=== PATIENT | male | born 1985 | race African-American/Black ===

== ENCOUNTER 2018-08-12 07:27 | Emergency (ER) | payer SELFPAY ==
[2018-08-12 07:50] VITALS: BP 133/82; PULSE 66; TEMP 98.2; BMI 27.3
[2018-08-12] MEDS ORDERED: METHOCARBAMOL 500 MG TABLET PO ONE (08:16)
[2018-08-12] MEDS ORDERED: traMADol HCL 50 MG TABLET PO ONE (08:16)
[2018-08-12] MEDS ORDERED: traMADol HCL 50 MG TABLET ONE (08:23)
[2018-08-12] MEDS ORDERED: METHOCARBAMOL 500 MG TABLET ONE (08:24)
--- NOTE | 2018-08-12 08:24 | PDOC ---
History of Present Illness - General Chief Complaint: Back Pain Stated Complaint: R SIDED NUMBNESS Time Seen by Provider: 08/12/18 08:06 History Source: Patient Exam Limitations: Clinical Condition - History of Present Illness Initial Comments: 08/12/18 08:21 Patient with no PMhx present with complains of sudden onset of worsening pains with tingling sensation to right side of his body from right shoulder down to right arm and posterior spine. 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 Report numbness sensation to right side of body. Denies previous symptoms in the past. Denies dizziness, N/V. Timing/Duration: 24 hours Past History - Past Medical History Allergies/Adverse Reactions: Allergies Allergy/AdvReac Type Severity Reaction Status Date / Time shellfish derived Allergy Verified 08/12/18 07:41 Home Medications: Ambulatory Orders Methocarbamol [Robaxin -] 500 mg PO TID #21 tablet 08/12/18 Naproxen 500 mg PO BID PRN #20 tablet 08/12/18 CVA: No COPD: No Other medical history: CHRONIC BACK PAIN - Immunization History Immunization Up to Date: Yes - Suicide/Smoking/Psychosocial Hx Smoking History: Never smoked Hx Alcohol Use: No Drug/Substance Use Hx: No Review of Systems - Review of Systems Able to Perform ROS?: Yes Is the patient limited Estonian proficient: No Constitutional: No: Weakness HEENTM: No: Symptoms Reported, See HPI, Eye Pain, Blurred Vision, Tearing, Recent change in vision, Double Vision, Cataracts, Ear Pain, Ocular Prothesis, Ear Discharge, Nose Pain, Nose Congestion, Tinnitus, Nose Bleeding, Hearing Loss , Throat Pain, Throat Swelling, Mouth Pain, Dental Problems, Difficulty Swallowing, Mouth Swelling, Other Respiratory: No: Symptoms reported, See HPI, Cough, Orthopnea, Shortness of Breath, SOB with Exertion, SOB at Rest, Stridor, Wheezing, Productive cough, Hemoptysis, Other Cardiac (ROS): No: Symptoms Reported, See HPI, Chest Pain, Edema, Irregular Heart Rate, Lightheadedness, Palpitations, Syncope, Chest Tightness, Other ABD/GI: No: Nausea, Vomiting Musculoskeletal: Yes: See HPI, Back Pain, Muscle Pain (right upper arm), Neck Pain (posterior neck) Neurological: Yes: See HPI, Numbness (right upper arm, shoulder, b/l LE, whole back), Tingling. No: Pre-Existing Deficit, Weakness, Unsteady Gait, Dizziness All Other Systems: Reviewed and Negative *Physical Exam - Vital Signs Last Vital Signs Temp Pulse Resp BP Pulse Ox 98.2 F 66 17 133/82 98 08/12/18 07:42 08/12/18 07:42 08/12/18 07:42 08/12/18 07:42 08/12/18 07:42 - Physical Exam Comments: 08/12/18 09:10 GENERAL: Well developed, well nourished. Awake and alert in mild acute distress. CARDIOVASCULAR: Regular rate and rhythm. No murmurs, rubs, or gallops. PULMONARY: No evidence of respiratory distress. Lungs clear to auscultation bilaterally. No wheezing, rales or rhonchi. ABDOMINAL: Soft. Non-tender. Non-distended. No rebound or guarding. No organomegaly. Normoactive bowel sounds MUSCULOSKELETAL : Subjective pressure to right upper shoulder, bilateral posterior neck, bilateral lower back. No bony deformities SKIN: Warm and dry. Normal capillary refill. NEUROLOGICAL: Alert, awake, appropriate. No motor deficits in the lower extremities. Gait is normal without ataxia. PSYCHIATRIC: Cooperative. Good eye contact. Appropriate mood and affect. General Appearance: Yes: Nourished, Appropriately Dressed, Mild Distress ED Treatment Course - RADIOLOGY Radiology Studies Ordered: Category Date Time Status SHOULDER-RIGHT [RAD] Stat Radiology 08/12/18 08:16 Ordered SPINE-CERVICAL [RAD] Stat Radiology 08/12/18 08:16 Ordered Medical Decision Making - Medical Decision Making 08/12/18 08:24 Patient with no PMhx present with complains of sudden onset of worsening pains with tingling sensation to right side of his body from right shoulder down to right arm and posterior spine. 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 Report numbness sensation to right side of body. Denies previous symptoms in the past. Denies dizziness, N/V. 08/12/18 10:[address] shows arthritis changes with pinched nerve of C5 on left side. 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 no acute findings on imaging. imaging findings discussed with patient and advised on need of orthopedics follow-up. Patient stable for discharge on naproxen and robaxin with ortho follow-up *DC/Admit/Observation/Transfer Diagnosis at time of Disposition: Right elbow tendinitis, Arthralgia, cervical spine Lumbago with sciatica Qualifiers: Chronicity: acute Back pain laterality: bilateral Sciatica laterality: bilateral sciatica Qualified Code(s): M54.42 - Lumbago with sciatica, left side - Discharge Dispostion Disposition: HOME Condition at time of disposition: Stable Decision to Admit order: No - Prescriptions Prescriptions: Methocarbamol [Robaxin -] 500 mg PO TID #21 tablet Naproxen 500 mg PO BID PRN #20 tablet PRN Reason: pain - Referrals Referrals: Robby Najera DO [Staff Physician] - - Patient Instructions Printed Discharge Instructions: Cervical Myelopathy, DI for Cervical Radiculopathy Additional Instructions: Neck CATS scan shows pinched nerve in cervical spine. Moderate arthritis changes in lower back .Take medications as prescribed. Follow-up with referred orthopedics - Post Discharge Activity Forms/Work/School Notes: Back to Work
--- NOTE | 2018-08-12 09:09 | PDOC ---
*Physical Exam - Vital Signs Last Vital Signs Temp Pulse Resp BP Pulse Ox 98.2 F 66 17 133/82 98 08/12/18 07:42 08/12/18 07:42 08/12/18 07:42 08/12/18 07:42 08/12/18 07:42 - Physical Exam Comments: 08/12/18 09:09 The patient was examined by [LAWSON Zazueta] under my direct supervision. I personally evaluated the patient. I concur with the above findings and the plan of care. ED Treatment Course - Medications Given in the ED: ED Medications Discontinued Medications Generic Name Dose Route Start Last Admin Trade Name Freq PRN Reason Stop Dose Admin Methocarbamol 500 mg 08/12/18 08:16 08/12/18 08:27 Robaxin - PO 08/12/18 08:17 500 mg ONCE ONE Administration Tramadol HCl 50 mg 08/12/18 08:16 08/12/18 08:27 Ultram - PO 08/12/18 08:17 50 mg ONCE ONE Administration
[2018-08-12] MEDS ORDERED: KETOROLAC TROMETHAMINE 60 MG/2 ML VIAL IM ONE (09:57)
[2018-08-12] MEDS ORDERED: KETOROLAC TROMETHAMINE 60 MG/2 ML VIAL ONE (10:41)
== END 2018-08-12 11:25 | disposition home or self-care (01) ==
LOC: JER 07:27
PROC: 3E0233Z Introduction of Anti-inflammatory into Muscle, Percutaneous Approach (ICD-10-PCS; principal; 2018-08-12)
DX: M77.9 Enthesopathy, unspecified (principal); M54.42 Lumbago with sciatica, left side; M54.2 Cervicalgia
CPT/HCPCS: 72100-TC-FY; 72125-TC; 73070-TC-RT-FY; 99281-25

== ENCOUNTER 2020-01-13 11:40 | Inpatient (IN) | payer OTHER ==
[2020-01-13 13:51] VITALS: BMI 33.6
[2020-01-13] MEDS ORDERED: LOPERAMIDE HCL 2 MG CAPSULE PO PRN (17:07)
[2020-01-13] MEDS ORDERED: MAGNESIUM CITRATE 300 ML BOTTLE PO PRN (17:07)
[2020-01-13] MEDS ORDERED: TUBERCULIN PPD 5 TU/0.1ML VIAL ID ONE (17:38)
[2020-01-13] MEDS: MELATONIN 5 MG TABLETS PO PRN (21:33)
[2020-01-13] MEDS: THIAMINE HCL 100 MG TABLET (FP) PO SCH (21:33)
[2020-01-13] MEDS: hydrOXYzine PAMOATE 25 MG CAPSULE (FP) PO PRN (21:33)
[2020-01-13] MEDS: ACETAMINOPHEN 325 MG TABLET (FP) PO PRN (21:34)
[2020-01-14] MEDS: PRENATAL VITAMINS W/ FOLIC ACID TABLET (FP) PO SCH (10:13)
[2020-01-14] MEDS: METHOCARBAMOL 500 MG TABLET PO PRN (10:13)
[2020-01-14] MEDS: hydrOXYzine PAMOATE 25 MG CAPSULE (FP) PO PRN (10:14)
[2020-01-14 10:30] LABS: POTASSIUM 3.9 mmol/L (3.5-5.1)
[2020-01-14 10:32] LABS: HEMATOCRIT 43.2 % (35.4-49); HEMOGLOBIN 14.2 GM/dL (11.7-16.9); MCH 31.6 pg (25.7-33.7); MCHC 32.8 g/dl (32.0-35.9); MEAN CELL VOLUME 96.2 fl (80-96); MEAN PLT VOLUME 8.8 fl (7.5-11.1); PLATELET COUNT 219 K/MM3 (134-434); RBC 4.49 M/mm3 (4.00-5.60); RDW 13.7 % (11.9-15.9); WHITE BLOOD COUNT 7.3 K/mm3 (4.0-10.0)
[2020-01-14 10:35] LABS: CALCIUM 8.7 mg/dL (8.5-10.1)
[2020-01-14 10:36] LABS: ALBUMIN 3.4 g/dl (3.4-5.0); BLOOD UREA NITROGEN 14.2 mg/dL (7-18)
[2020-01-14 10:39] LABS: BILIRUBIN,TOTAL 0.4 mg/dL (0.2-1); CREATININE 0.8 mg/dL (0.55-1.3); TOT PROT 6.4 g/dl (6.4-8.2)
[2020-01-14 11:23] LABS: SICKLE CELL SCREEN NEGATIVE (NEGATIVE)
[2020-01-14 11:25] LABS: HIV INTERPRETATION NEGATIVE (NEGATIVE)
[2020-01-14] MEDS ORDERED: FLU VACCINE (FLULAVAL) PF 60 MCG/0.5 ML SYRINGE 2020-2021 IM ONE (12:00)
[2020-01-14] MEDS ORDERED: PNEUMOC 13-VAL CONJ-DIP CRM/PF 0.5 ML DISP.SYRIN IM ONE (12:00)
[2020-01-14] MEDS ORDERED: PNEUMOCOCCAL 23 VACCINE 0.5 ML VIAL IM ONE (12:00)
[2020-01-14 14:26] LABS: PH,URINE 5.5 (5.0-8.0); URINE APPEARANCE CLEAR; URINE BILIRUBIN NEGATIVE (NEGATIVE); URINE COLOR YELLOW; URINE GLUCOSE (UA) NEGATIVE (NEGATIVE); URINE KETONE NEGATIVE (NEGATIVE); URINE LEUK ESTERASE NEGATIVE (NEGATIVE); URINE NITRITE NEGATIVE (NEGATIVE); URINE PROTEIN NEGATIVE (NEGATIVE); URINE UROBILINOGEN 0.2 mg/dL (0.2-1.0)
[2020-01-14] MEDS: THIAMINE HCL 100 MG TABLET (FP) PO SCH (22:10)
[2020-01-15] MEDS: PRENATAL VITAMINS W/ FOLIC ACID TABLET (FP) PO SCH (10:02)
[2020-01-15] MEDS: METHOCARBAMOL 500 MG TABLET PO PRN ×2 (10:03→17:11)
[2020-01-15] MEDS: hydrOXYzine PAMOATE 25 MG CAPSULE (FP) PO PRN (10:03)
[2020-01-15] MEDS: IBUPROFEN 400 MG TABLET (FP) PO PRN ×2 (10:04→17:11)
[2020-01-16] MEDS: THIAMINE HCL 100 MG TABLET (FP) PO SCH ×2 (00:09→21:43)
[2020-01-16] MEDS: PRENATAL VITAMINS W/ FOLIC ACID TABLET (FP) PO SCH (10:13)
[2020-01-16] MEDS: METHOCARBAMOL 500 MG TABLET PO PRN ×2 (10:13→21:44)
[2020-01-16] MEDS: ACETAMINOPHEN 325 MG TABLET (FP) PO PRN (10:14)
[2020-01-16] MEDS: MELATONIN 5 MG TABLETS PO PRN (21:43)
[2020-01-16] MEDS: IBUPROFEN 400 MG TABLET (FP) PO PRN (21:45)
[2020-01-16] MEDS: hydrOXYzine PAMOATE 25 MG CAPSULE (FP) PO PRN (21:46)
[2020-01-17] MEDS: hydrOXYzine PAMOATE 25 MG CAPSULE (FP) PO PRN ×2 (10:32→21:34)
[2020-01-17] MEDS: METHOCARBAMOL 500 MG TABLET PO PRN (10:32)
[2020-01-17] MEDS: PRENATAL VITAMINS W/ FOLIC ACID TABLET (FP) PO SCH (10:32)
[2020-01-17] MEDS: IBUPROFEN 400 MG TABLET (FP) PO PRN (10:32)
[2020-01-17] MEDS: MAGNESIUM HYDROX 2400MG/30ML ORAL SUSPENSION 30 ML CUP PO PRN ×2 (13:40→21:33)
[2020-01-17] MEDS: P-EPHED 60MG/TRIPROLIDI 2.5MG TABLET PO PRN (13:40)
[2020-01-17] MEDS: LIDOCAINE 5% TOPICAL PATCH TP SCH (16:05)
[2020-01-17] MEDS: DOCUSATE SODIUM 100 MG CAPSULE (FP) PO SCH (21:34)
[2020-01-17] MEDS: THIAMINE HCL 100 MG TABLET (FP) PO SCH (21:34)
[2020-01-17] MEDS: METHOCARBAMOL 750 MG TAB PO PRN (21:34)
[2020-01-17] MEDS: LIDOCAINE PATCH REMOVAL MC SCH (21:34)
[2020-01-17] MEDS: MELATONIN 5 MG TABLETS PO PRN (21:34)
[2020-01-18] MEDS: DOCUSATE SODIUM 100 MG CAPSULE (FP) PO SCH ×3 (06:52→21:28)
[2020-01-18] MEDS: P-EPHED 60MG/TRIPROLIDI 2.5MG TABLET PO PRN (06:55)
[2020-01-18] MEDS: MAG HYDROX/AL HYDROX/SIMETH 30 ML UNIT-DOSE CUP PO PRN ×2 (06:56→17:46)
[2020-01-18] MEDS: METHOCARBAMOL 750 MG TAB PO PRN ×2 (10:37→21:28)
[2020-01-18] MEDS: PRENATAL VITAMINS W/ FOLIC ACID TABLET (FP) PO SCH (10:37)
[2020-01-18] MEDS: hydrOXYzine PAMOATE 25 MG CAPSULE (FP) PO PRN ×2 (10:37→21:28)
[2020-01-18] MEDS: LIDOCAINE 5% TOPICAL PATCH TP SCH (10:38)
[2020-01-18] MEDS: IBUPROFEN 400 MG TABLET (FP) PO PRN (10:39)
[2020-01-18] MEDS: THIAMINE HCL 100 MG TABLET (FP) PO SCH (21:28)
[2020-01-18] MEDS: SUVOREXANT 10 MG TABLET PO PRN (21:28)
[2020-01-18] MEDS: MELATONIN 5 MG TABLETS PO PRN (21:28)
[2020-01-18] MEDS: LIDOCAINE PATCH REMOVAL MC SCH (21:29)
[2020-01-19] MEDS: DOCUSATE SODIUM 100 MG CAPSULE (FP) PO SCH ×3 (07:01→21:24)
[2020-01-19] MEDS: PRENATAL VITAMINS W/ FOLIC ACID TABLET (FP) PO SCH (09:56)
[2020-01-19] MEDS: LIDOCAINE 5% TOPICAL PATCH TP SCH (09:56)
[2020-01-19] MEDS: METHOCARBAMOL 750 MG TAB PO PRN ×2 (09:57→21:24)
[2020-01-19] MEDS: hydrOXYzine PAMOATE 25 MG CAPSULE (FP) PO PRN ×2 (09:59→21:24)
[2020-01-19] MEDS: ACETAMINOPHEN 325 MG TABLET (FP) PO PRN (09:59)
[2020-01-19] MEDS: MAG HYDROX/AL HYDROX/SIMETH 30 ML UNIT-DOSE CUP PO PRN ×2 (10:02→17:08)
[2020-01-19] MEDS: P-EPHED 60MG/TRIPROLIDI 2.5MG TABLET PO PRN (10:02)
[2020-01-19] MEDS: SELENIUM SULFIDE 2.5% LOTION 4 OZ. TP SCH (14:16)
[2020-01-19] MEDS: COLLOIDAL OATMEAL 1 BAR EACH TP PRN (14:16)
[2020-01-19] MEDS: guaiFENesin 200 MG/10 ML 10 ML UNIT-DOSE CUPS PO PRN (19:20)
[2020-01-19] MEDS: MELATONIN 5 MG TABLETS PO PRN (21:23)
[2020-01-19] MEDS: SUVOREXANT 10 MG TABLET PO PRN (21:23)
[2020-01-19] MEDS: LIDOCAINE PATCH REMOVAL MC SCH (21:24)
[2020-01-19] MEDS: THIAMINE HCL 100 MG TABLET (FP) PO SCH (21:24)
[2020-01-20] MEDS: DOCUSATE SODIUM 100 MG CAPSULE (FP) PO SCH ×3 (06:36→22:05)
[2020-01-20] MEDS: MAG HYDROX/AL HYDROX/SIMETH 30 ML UNIT-DOSE CUP PO PRN ×3 (06:46→22:06)
[2020-01-20] MEDS: PRENATAL VITAMINS W/ FOLIC ACID TABLET (FP) PO SCH (10:05)
[2020-01-20] MEDS: SELENIUM SULFIDE 2.5% LOTION 4 OZ. TP SCH (10:05)
[2020-01-20] MEDS: LIDOCAINE 5% TOPICAL PATCH TP SCH (10:06)
[2020-01-20] MEDS: METHOCARBAMOL 750 MG TAB PO PRN ×2 (10:06→22:06)
[2020-01-20] MEDS: hydrOXYzine PAMOATE 25 MG CAPSULE (FP) PO PRN (10:07)
[2020-01-20] MEDS: P-EPHED 60MG/TRIPROLIDI 2.5MG TABLET PO PRN ×2 (10:08→22:06)
[2020-01-20] MEDS: SUVOREXANT 10 MG TABLET PO PRN (22:05)
[2020-01-20] MEDS: THIAMINE HCL 100 MG TABLET (FP) PO SCH (22:06)
[2020-01-20] MEDS: LIDOCAINE PATCH REMOVAL MC SCH (22:07)
[2020-01-20] MEDS: ACETAMINOPHEN 325 MG TABLET (FP) PO PRN (22:07)
[2020-01-21] MEDS: DOCUSATE SODIUM 100 MG CAPSULE (FP) PO SCH ×3 (08:13→21:45)
[2020-01-21] MEDS: SELENIUM SULFIDE 2.5% LOTION 4 OZ. TP SCH (10:40)
[2020-01-21] MEDS: hydrOXYzine PAMOATE 25 MG CAPSULE (FP) PO PRN ×2 (10:40→21:45)
[2020-01-21] MEDS: METHOCARBAMOL 750 MG TAB PO PRN ×2 (10:40→21:45)
[2020-01-21] MEDS: PRENATAL VITAMINS W/ FOLIC ACID TABLET (FP) PO SCH (10:40)
[2020-01-21] MEDS: LIDOCAINE 5% TOPICAL PATCH TP SCH (10:41)
[2020-01-21] MEDS: MAG HYDROX/AL HYDROX/SIMETH 30 ML UNIT-DOSE CUP PO PRN ×2 (10:42→19:11)
[2020-01-21] MEDS: P-EPHED 60MG/TRIPROLIDI 2.5MG TABLET PO PRN (10:42)
[2020-01-21] MEDS: ACETAMINOPHEN 325 MG TABLET (FP) PO PRN (10:43)
[2020-01-21] MEDS: IBUPROFEN 400 MG TABLET (FP) PO PRN (15:07)
[2020-01-21] MEDS: MELATONIN 5 MG TABLETS PO PRN (21:45)
[2020-01-21] MEDS: LIDOCAINE PATCH REMOVAL MC SCH (21:45)
[2020-01-21] MEDS: THIAMINE HCL 100 MG TABLET (FP) PO SCH (21:45)
[2020-01-21] MEDS: SUVOREXANT 10 MG TABLET PO PRN (21:49)
[2020-01-21] MEDS: PSYLLIUM 5.85 GM PACKET PO SCH (22:20)
[2020-01-22] MEDS: DOCUSATE SODIUM 100 MG CAPSULE (FP) PO SCH ×3 (06:35→21:09)
[2020-01-22] MEDS: PSYLLIUM 5.85 GM PACKET PO SCH ×3 (06:35→21:11)
[2020-01-22] MEDS: MAG HYDROX/AL HYDROX/SIMETH 30 ML UNIT-DOSE CUP PO PRN ×3 (06:37→23:58)
[2020-01-22] MEDS: LIDOCAINE 5% TOPICAL PATCH TP SCH (10:08)
[2020-01-22] MEDS: PRENATAL VITAMINS W/ FOLIC ACID TABLET (FP) PO SCH (10:08)
[2020-01-22] MEDS: ACETAMINOPHEN 325 MG TABLET (FP) PO PRN ×2 (10:09→14:46)
[2020-01-22] MEDS: hydrOXYzine PAMOATE 25 MG CAPSULE (FP) PO PRN ×3 (10:09→21:09)
[2020-01-22] MEDS: METHOCARBAMOL 750 MG TAB PO PRN ×2 (10:09→21:09)
[2020-01-22] MEDS: P-EPHED 60MG/TRIPROLIDI 2.5MG TABLET PO PRN (10:11)
[2020-01-22] MEDS: SELENIUM SULFIDE 2.5% LOTION 4 OZ. TP SCH (10:12)
[2020-01-22] MEDS: MELATONIN 5 MG TABLETS PO PRN (21:09)
[2020-01-22] MEDS: SUVOREXANT 10 MG TABLET PO PRN (21:09)
[2020-01-22] MEDS: THIAMINE HCL 100 MG TABLET (FP) PO SCH (21:09)
[2020-01-22] MEDS: LIDOCAINE PATCH REMOVAL MC SCH (21:11)
[2020-01-23] MEDS: DOCUSATE SODIUM 100 MG CAPSULE (FP) PO SCH ×3 (06:58→21:31)
[2020-01-23] MEDS: PSYLLIUM 5.85 GM PACKET PO SCH ×3 (06:58→21:29)
[2020-01-23] MEDS: MAG HYDROX/AL HYDROX/SIMETH 30 ML UNIT-DOSE CUP PO PRN ×3 (07:00→21:32)
[2020-01-23] MEDS: PRENATAL VITAMINS W/ FOLIC ACID TABLET (FP) PO SCH (09:58)
[2020-01-23] MEDS: LIDOCAINE 5% TOPICAL PATCH TP SCH (09:58)
[2020-01-23] MEDS: hydrOXYzine PAMOATE 25 MG CAPSULE (FP) PO PRN ×2 (09:58→21:31)
[2020-01-23] MEDS: guaiFENesin 200 MG/10 ML 10 ML UNIT-DOSE CUPS PO PRN (09:59)
[2020-01-23] MEDS: METHOCARBAMOL 750 MG TAB PO PRN ×2 (09:59→21:32)
[2020-01-23] MEDS: ACETAMINOPHEN 325 MG TABLET (FP) PO PRN (09:59)
[2020-01-23] MEDS: P-EPHED 60MG/TRIPROLIDI 2.5MG TABLET PO PRN ×2 (10:00→21:31)
[2020-01-23] MEDS: SELENIUM SULFIDE 2.5% LOTION 4 OZ. TP SCH (10:03)
[2020-01-23] MEDS: THIAMINE HCL 100 MG TABLET (FP) PO SCH (21:31)
[2020-01-23] MEDS: MELATONIN 5 MG TABLETS PO PRN (21:31)
[2020-01-23] MEDS: SUVOREXANT 10 MG TABLET PO PRN (21:31)
[2020-01-23] MEDS: LIDOCAINE PATCH REMOVAL MC SCH (21:31)
[2020-01-24] MEDS: PSYLLIUM 5.85 GM PACKET PO SCH ×3 (06:41→23:15)
[2020-01-24] MEDS: MAG HYDROX/AL HYDROX/SIMETH 30 ML UNIT-DOSE CUP PO PRN (06:44)
[2020-01-24] MEDS: DOCUSATE SODIUM 100 MG CAPSULE (FP) PO SCH ×3 (06:59→21:33)
[2020-01-24] MEDS: PRENATAL VITAMINS W/ FOLIC ACID TABLET (FP) PO SCH (10:15)
[2020-01-24] MEDS: LIDOCAINE 5% TOPICAL PATCH TP SCH (10:15)
[2020-01-24] MEDS: SELENIUM SULFIDE 2.5% LOTION 4 OZ. TP SCH (10:15)
[2020-01-24] MEDS: hydrOXYzine PAMOATE 25 MG CAPSULE (FP) PO PRN ×3 (10:16→21:33)
[2020-01-24] MEDS: METHOCARBAMOL 750 MG TAB PO PRN ×2 (10:18→21:33)
[2020-01-24] MEDS: guaiFENesin 200 MG/10 ML 10 ML UNIT-DOSE CUPS PO PRN (10:18)
[2020-01-24] MEDS: ACETAMINOPHEN 325 MG TABLET (FP) PO PRN (10:18)
[2020-01-24] MEDS: P-EPHED 60MG/TRIPROLIDI 2.5MG TABLET PO PRN (10:20)
[2020-01-24] MEDS: PANTOPRAZOLE 40 MG TABLET PO SCH (14:44)
[2020-01-24] MEDS: THIAMINE HCL 100 MG TABLET (FP) PO SCH (21:33)
[2020-01-24] MEDS: MELATONIN 5 MG TABLETS PO PRN (21:33)
[2020-01-24] MEDS: LIDOCAINE PATCH REMOVAL MC SCH (23:15)
[2020-01-25] MEDS: MAG HYDROX/AL HYDROX/SIMETH 30 ML UNIT-DOSE CUP PO PRN ×2 (06:42→18:25)
[2020-01-25] MEDS: DOCUSATE SODIUM 100 MG CAPSULE (FP) PO SCH ×3 (06:42→21:34)
[2020-01-25] MEDS: PSYLLIUM 5.85 GM PACKET PO SCH ×3 (06:42→21:34)
[2020-01-25 06:56] VITALS: TEMP 97.8
[2020-01-25] MEDS: PANTOPRAZOLE 40 MG TABLET PO SCH (10:18)
[2020-01-25] MEDS: SELENIUM SULFIDE 2.5% LOTION 4 OZ. TP SCH (10:18)
[2020-01-25] MEDS: PRENATAL VITAMINS W/ FOLIC ACID TABLET (FP) PO SCH (10:18)
[2020-01-25] MEDS: hydrOXYzine PAMOATE 25 MG CAPSULE (FP) PO PRN ×2 (10:20→21:36)
[2020-01-25] MEDS: ACETAMINOPHEN 325 MG TABLET (FP) PO PRN ×2 (10:20→21:36)
[2020-01-25] MEDS: METHOCARBAMOL 750 MG TAB PO PRN (10:21)
[2020-01-25] MEDS: LIDOCAINE 5% TOPICAL PATCH TP SCH (10:22)
[2020-01-25] MEDS: COLLOIDAL OATMEAL 1 BAR EACH TP PRN (15:07)
[2020-01-25] MEDS: SUVOREXANT 10 MG TABLET PO PRN (21:34)
[2020-01-25] MEDS: LIDOCAINE PATCH REMOVAL MC SCH (21:35)
[2020-01-25] MEDS: THIAMINE HCL 100 MG TABLET (FP) PO SCH (21:39)
[2020-01-26] MEDS: DOCUSATE SODIUM 100 MG CAPSULE (FP) PO SCH ×3 (07:01→21:40)
[2020-01-26] MEDS: MAG HYDROX/AL HYDROX/SIMETH 30 ML UNIT-DOSE CUP PO PRN (07:01)
[2020-01-26] MEDS: PSYLLIUM 5.85 GM PACKET PO SCH ×3 (07:01→21:44)
[2020-01-26 07:09] VITALS: BP 123/80; PULSE 66
[2020-01-26] MEDS: METHOCARBAMOL 750 MG TAB PO PRN (10:32)
[2020-01-26] MEDS: PRENATAL VITAMINS W/ FOLIC ACID TABLET (FP) PO SCH (10:32)
[2020-01-26] MEDS: PANTOPRAZOLE 40 MG TABLET PO SCH (10:32)
[2020-01-26] MEDS: LIDOCAINE 5% TOPICAL PATCH TP SCH (10:33)
[2020-01-26] MEDS: SELENIUM SULFIDE 2.5% LOTION 4 OZ. TP SCH (10:33)
[2020-01-26] MEDS: ACETAMINOPHEN 325 MG TABLET (FP) PO PRN (10:35)
[2020-01-26] MEDS: hydrOXYzine PAMOATE 25 MG CAPSULE (FP) PO PRN ×2 (10:35→21:40)
[2020-01-26] MEDS: SUVOREXANT 10 MG TABLET PO PRN (21:40)
[2020-01-26] MEDS: MELATONIN 5 MG TABLETS PO PRN (21:40)
[2020-01-26] MEDS: THIAMINE HCL 100 MG TABLET (FP) PO SCH (21:40)
[2020-01-26] MEDS: P-EPHED 60MG/TRIPROLIDI 2.5MG TABLET PO PRN (21:42)
[2020-01-26] MEDS: LIDOCAINE PATCH REMOVAL MC SCH (21:43)
[2020-01-27] MEDS: DOCUSATE SODIUM 100 MG CAPSULE (FP) PO SCH (07:46)
[2020-01-27] MEDS: PSYLLIUM 5.85 GM PACKET PO SCH (07:46)
[2020-01-27] MEDS: PANTOPRAZOLE 40 MG TABLET PO SCH (09:17)
[2020-01-27] MEDS: ACETAMINOPHEN 325 MG TABLET (FP) PO PRN (09:17)
[2020-01-27] MEDS: METHOCARBAMOL 750 MG TAB PO PRN (09:17)
[2020-01-27] MEDS: PRENATAL VITAMINS W/ FOLIC ACID TABLET (FP) PO SCH (09:17)
[2020-01-27] MEDS: hydrOXYzine PAMOATE 25 MG CAPSULE (FP) PO PRN (09:17)
[2020-01-27] MEDS: LIDOCAINE 5% TOPICAL PATCH TP SCH (09:20)
== END 2020-01-27 10:50 | disposition home or self-care (01) | DRG 772 ==
LOC: YASAS 11:40 → Y5N 17:11
PROVIDERS: ADMIT Allergy & Immunology; ATTEND Allergy & Immunology
PROC: HZ42ZZZ Group Counseling for Substance Abuse Treatment, Cognitive-Behavioral (ICD-10-PCS; principal; 2020-01-13)
DX: F10.20 Alcohol dependence, uncomplicated (principal); F16.20 Hallucinogen dependence, uncomplicated; F12.20 Cannabis dependence, uncomplicated; F32.9 Major depressive disorder, single episode, unspecified; F90.9 Attention-deficit hyperactivity disorder, unspecified type; F17.210 Nicotine dependence, cigarettes, uncomplicated; G47.33 Obstructive sleep apnea (adult) (pediatric); I10 Essential (primary) hypertension; K21.9 Gastro-esophageal reflux disease without esophagitis; K59.00 Constipation, unspecified; M19.072 Primary osteoarthritis, left ankle and foot; M54.5 Low back pain; G89.29 Other chronic pain; R73.03 Prediabetes; E66.9 Obesity, unspecified; Z68.33 Body mass index [BMI] 33.0-33.9, adult; Z91.018 Allergy to other foods; Z56.0 Unemployment, unspecified; Z59.0 Homelessness
CPT/HCPCS: 36415; 80053; 81003; 82962; 85027; 85660; 86780; 87389; 90732; C9803; G0008; G0009; Q2036; U0003

== ENCOUNTER 2020-05-23 21:52 | Inpatient (IN) | payer OTHER ==
[2020-05-23 22:26] VITALS: BMI 33.2
[2020-05-23] MEDS ORDERED: P-EPHED 60MG/TRIPROLIDI 2.5MG TABLET PO PRN (23:01)
[2020-05-23] MEDS ORDERED: BISMUTH SUBSALICYLATE 524 MG/30 ML UD PO PRN (23:01)
[2020-05-23] MEDS ORDERED: ACETAMINOPHEN 325 MG TABLET (FP) PO PRN ×2 (23:01)
[2020-05-23] MEDS ORDERED: ONDANSETRON *ODT* 4 MG TABLET SL PRN (23:01)
[2020-05-23] MEDS ORDERED: DICYCLOMINE HCL 10 MG CAPSULE PO PRN (23:01)
[2020-05-23] MEDS ORDERED: MENTHOL/PHENOL 1 EACH UD MM PRN (23:01)
[2020-05-23] MEDS ORDERED: guaiFENesin 200 MG/10 ML 10 ML UNIT-DOSE CUPS PO PRN (23:01)
[2020-05-23] MEDS ORDERED: chlordiazePOXIDE HCL 25 MG CAPSULE PO PRN (23:01)
[2020-05-23] MEDS ORDERED: MAGNESIUM HYDROX 2400MG/30ML ORAL SUSPENSION 30 ML CUP PO PRN (23:01)
[2020-05-23] MEDS ORDERED: NICOTINE POLACRILEX 2 MG GUM BUC PRN (23:01)
[2020-05-23] MEDS ORDERED: MAGNESIUM CITRATE 300 ML BOTTLE PO PRN (23:01)
[2020-05-24] MEDS ORDERED: chlordiazePOXIDE HCL 25 MG CAPSULE ONE ×3 (00:54→10:26)
[2020-05-24] MEDS: chlordiazePOXIDE HCL 25 MG CAPSULE PO SCH ×5 (00:57→22:29)
[2020-05-24] MEDS: AMOX TR/POT CLAV 875MG/125MG TABLETS (FP) PO SCH ×2 (09:33→17:57)
[2020-05-24] MEDS: PRENATAL VITAMINS W/ FOLIC ACID TABLET (FP) PO SCH (10:51)
[2020-05-24] MEDS: NICOTINE 21 MG/24 HOURS TOPICAL PATCH TD SCH (10:53)
[2020-05-24 11:38] LABS: HEMATOCRIT 41.5 % (35.4-49); HEMOGLOBIN 14.2 GM/dL (11.7-16.9); MCH 32.5 pg (25.7-33.7); MCHC 34.1 g/dl (32.0-35.9); MEAN CELL VOLUME 95.1 fl (80-96); MEAN PLT VOLUME 8.5 fl (7.5-11.1); PLATELET COUNT 238 K/MM3 (134-434); RBC 4.36 M/mm3 (4.00-5.60); RDW 13.8 % (11.9-15.9); WHITE BLOOD COUNT 6.7 K/mm3 (4.0-10.0)
[2020-05-24 11:39] LABS: ALBUMIN 3.7 g/dl (3.4-5.0); BLOOD UREA NITROGEN 19.4 mg/dL (7-18); CALCIUM 8.5 mg/dL (8.5-10.1)
[2020-05-24 11:42] LABS: CREATININE 0.9 mg/dL (0.55-1.3)
[2020-05-24 11:44] LABS: BILIRUBIN,TOTAL 0.6 mg/dL (0.2-1); TOT PROT 6.8 g/dl (6.4-8.2)
[2020-05-24] MEDS: FLUTICASONE PROP 0.05% 16 GM NASAL SPRAY NS SCH ×2 (14:31→22:30)
[2020-05-24] MEDS ORDERED: MELATONIN 5 MG TABLETS PO SCH (22:00)
[2020-05-24] MEDS: THIAMINE HCL 100 MG TABLET (FP) PO SCH (22:29)
[2020-05-24] MEDS: MELATONIN 5 MG TABLETS PO SCH (22:30)
[2020-05-24] MEDS: MAG HYDROX/AL HYDROX/SIMETH 30 ML UNIT-DOSE CUP PO PRN (22:33)
[2020-05-25] MEDS: chlordiazePOXIDE HCL 25 MG CAPSULE PO SCH ×4 (05:31→22:37)
[2020-05-25] MEDS: AMOX TR/POT CLAV 875MG/125MG TABLETS (FP) PO SCH ×2 (07:59→18:07)
[2020-05-25] MEDS: NICOTINE 21 MG/24 HOURS TOPICAL PATCH TD SCH (10:54)
[2020-05-25] MEDS: PRENATAL VITAMINS W/ FOLIC ACID TABLET (FP) PO SCH (10:54)
[2020-05-25] MEDS: FLUTICASONE PROP 0.05% 16 GM NASAL SPRAY NS SCH ×2 (10:55→22:37)
[2020-05-25] MEDS: COLLOIDAL OATMEAL 1 BAR EACH TP PRN (12:57)
[2020-05-25] MEDS: SELENIUM SULFIDE 2.5% LOTION 4 OZ. TP SCH (12:57)
[2020-05-25] MEDS: THIAMINE HCL 100 MG TABLET (FP) PO SCH (22:36)
[2020-05-25] MEDS: MELATONIN 5 MG TABLETS PO SCH (22:37)
[2020-05-25] MEDS: MAG HYDROX/AL HYDROX/SIMETH 30 ML UNIT-DOSE CUP PO PRN (22:39)
[2020-05-26] MEDS ORDERED: chlordiazePOXIDE HCL 10 MG CAPSULE PO PRN
[2020-05-26] MEDS: chlordiazePOXIDE HCL 10 MG CAPSULE PO SCH ×4 (06:26→22:58)
[2020-05-26] MEDS: IBUPROFEN 400 MG TABLET (FP) PO PRN (07:24)
[2020-05-26] MEDS: METHOCARBAMOL 500 MG TABLET PO PRN (07:24)
[2020-05-26] MEDS: AMOX TR/POT CLAV 875MG/125MG TABLETS (FP) PO SCH ×2 (07:31→18:29)
[2020-05-26] MEDS: FLUTICASONE PROP 0.05% 16 GM NASAL SPRAY NS SCH ×2 (10:55→22:59)
[2020-05-26] MEDS: PRENATAL VITAMINS W/ FOLIC ACID TABLET (FP) PO SCH (10:55)
[2020-05-26] MEDS: SELENIUM SULFIDE 2.5% LOTION 4 OZ. TP SCH (10:55)
[2020-05-26] MEDS: NICOTINE 21 MG/24 HOURS TOPICAL PATCH TD SCH (11:16)
[2020-05-26] MEDS: COLLOIDAL OATMEAL 1 BAR EACH TP PRN (15:07)
[2020-05-26] MEDS: MAG HYDROX/AL HYDROX/SIMETH 30 ML UNIT-DOSE CUP PO PRN (18:30)
[2020-05-26] MEDS: THIAMINE HCL 100 MG TABLET (FP) PO SCH (22:59)
[2020-05-26] MEDS: MELATONIN 5 MG TABLETS PO SCH (22:59)
[2020-05-27] MEDS: chlordiazePOXIDE HCL 10 MG CAPSULE PO SCH ×2 (05:44→18:26)
[2020-05-27] MEDS: MAG HYDROX/AL HYDROX/SIMETH 30 ML UNIT-DOSE CUP PO PRN ×2 (05:46→18:26)
[2020-05-27] MEDS: METHOCARBAMOL 500 MG TABLET PO PRN ×3 (05:46→18:27)
[2020-05-27] MEDS: AMOX TR/POT CLAV 875MG/125MG TABLETS (FP) PO SCH ×2 (08:03→18:27)
[2020-05-27] MEDS: FLUTICASONE PROP 0.05% 16 GM NASAL SPRAY NS SCH ×2 (10:44→22:05)
[2020-05-27] MEDS: PRENATAL VITAMINS W/ FOLIC ACID TABLET (FP) PO SCH (10:44)
[2020-05-27] MEDS: NICOTINE 21 MG/24 HOURS TOPICAL PATCH TD SCH (10:45)
[2020-05-27] MEDS: IBUPROFEN 400 MG TABLET (FP) PO PRN (10:47)
[2020-05-27] MEDS: SELENIUM SULFIDE 2.5% LOTION 4 OZ. TP SCH (13:17)
[2020-05-27] MEDS: THIAMINE HCL 100 MG TABLET (FP) PO SCH (22:04)
[2020-05-27] MEDS: MELATONIN 5 MG TABLETS PO SCH (22:05)
[2020-05-28] MEDS ORDERED: chlordiazePOXIDE HCL 10 MG CAPSULE PO ONE (05:00)
[2020-05-28] MEDS: AMOX TR/POT CLAV 875MG/125MG TABLETS (FP) PO SCH (07:30)
[2020-05-28] MEDS: MAG HYDROX/AL HYDROX/SIMETH 30 ML UNIT-DOSE CUP PO PRN (09:01)
[2020-05-28] MEDS: PRENATAL VITAMINS W/ FOLIC ACID TABLET (FP) PO SCH (09:02)
[2020-05-28] MEDS: SELENIUM SULFIDE 2.5% LOTION 4 OZ. TP SCH ×2 (09:03→09:54)
[2020-05-28] MEDS: NICOTINE 21 MG/24 HOURS TOPICAL PATCH TD SCH (09:03)
[2020-05-28] MEDS: FLUTICASONE PROP 0.05% 16 GM NASAL SPRAY NS SCH (09:03)
[2020-05-28] MEDS: METHOCARBAMOL 500 MG TABLET PO PRN (09:04)
[2020-05-28 09:48] VITALS: BP 143/67; PULSE 67; TEMP 97.3
== END 2020-05-28 10:50 | disposition other institution (70) | DRG 775 ==
LOC: YASAS 21:52 → Y6N 05-24 11:03
PROVIDERS: ADMIT Allergy & Immunology; ATTEND Allergy & Immunology
PROC: HZ2ZZZZ Detoxification Services for Substance Abuse Treatment (ICD-10-PCS; principal; 2020-05-24)
DX: F10.230 Alcohol dependence with withdrawal, uncomplicated (principal); F16.20 Hallucinogen dependence, uncomplicated; F12.20 Cannabis dependence, uncomplicated; F17.213 Nicotine dependence, cigarettes, with withdrawal; F19.282 Other psychoactive substance dependence with psychoactive substance-induced sleep disorder; F19.280 Other psychoactive substance dependence with psychoactive substance-induced anxiety disorder; F19.24 Other psychoactive substance dependence with psychoactive substance-induced mood disorder; F41.1 Generalized anxiety disorder; F90.9 Attention-deficit hyperactivity disorder, unspecified type; G47.30 Sleep apnea, unspecified; J01.21 Acute recurrent ethmoidal sinusitis; K59.01 Slow transit constipation; K21.9 Gastro-esophageal reflux disease without esophagitis; M54.5 Low back pain; E66.9 Obesity, unspecified; Z68.33 Body mass index [BMI] 33.0-33.9, adult; Z56.0 Unemployment, unspecified; Z59.0 Homelessness
CPT/HCPCS: 36415; 80053; 85027; 86780; C9803; U0003